=== PATIENT | female | born 1960 | race African-American/Black ===

== ENCOUNTER → 2019-12-05 | Outpatient (CLI) | payer OTHER ==
[2014-12-08 16:49] VITALS: BP 118/85
[~2019-12-05] MED LIST: ASPI-630 PO; DM/P295L2 PO; IBUP100T7 PO; IOHEXOL 240 MG/ML 50ML VIAL. ONE; IOHEXOL 240 MG/ML 50ML VIAL. PO ONE; IOHEXOL 300 MG/ML 75 ML VIAL. IV ONE; LISI10TA2 PO; SIMV10TA PO
--- NOTE | 2019-12-05 16:21 | RAD ---
Examination: CT ABD PELV W/ORAL IV CONTRAST History: ABDOMINAL PAIN SEVERAL WEEKS / Spl. Instructions: DRINKING [id number] / History: Comparison/Correlation: 11/26/2005 CT abdomen and pelvis without contrast Findings: Axial images of the abdomen and pelvis were obtained following IV contrast. Sagittal and coronal reformatted images were provided. Oral contrast was utilized. Present lung bases are unremarkable. Liver, spleen, pancreas, adrenal glands, and left kidney are normal. Gallbladder fossa is unremarkable. Moderate right renal atrophy is present with lobulated contour. No hydronephrosis. Appendix appears to be visualized and unremarkable. Diverticulosis of the colon is normal. Suture material is present involving the proximal sigmoid colon. Uterus is unremarkable. No enlarged abdominal or pelvic lymph nodes. No extraluminal gas. No ascites or pelvic free fluid. Heterogeneity of the myometrium which may represent fibroid involvement is seen. Mild L4-5 disc space narrowing is present. Neural foraminal narrowing is seen greater on the right. Concentric disc bulge at L5-S1 is present with vacuum phenomenon. Impression: Diverticulosis. No acute inflammatory process. No suspicious mass or obstructive finding. PQRS Compliance Statement: One or more of the following individualized dose reduction techniques were utilized for this examination: 1. Automated exposure control 2. Adjustment of the mA and/or kV according to patient size 3. Use of iterative reconstruction technique Electronically signed by: Daniel Vigil MD (12/05/2019 4:18 PM) [id number]
== END | disposition home or self-care (01) ==
LOC: CT 14:55
PROVIDERS: ATTEND Family Medicine
DX: K57.30 Diverticulosis of large intestine without perforation or abscess without bleeding (principal)
CPT/HCPCS: 74177; Q9966; Q9967